=== PATIENT | female | born 1955 | race African-American/Black ===

== ENCOUNTER 2024-10-14 14:27 | Emergency (ER) | payer MEDICARE, SELFPAY ==
[2024-10-14 14:29] VITALS: BP 85/67; PULSE 90; RESP 16; TEMP 36.8; O2SAT 98; BMI 11.3
[2024-10-14 14:42] VITALS: BP 82/57; PULSE 88; O2SAT 100
[2024-10-14 14:47] VITALS: BP 103/75
--- NOTE | 2024-10-14 15:20 | CT_ITS ---
PROCEDURE: ABDOMEN/PELVIS WITHOUT CONTRAST REASON FOR EXAM: Nephrostomy tube removal. Patient in hospice care. History of bladder cancer with bone metastasis. COPD. TECHNIQUE: Contiguous axial scans of 2.5 millimeter slice thicknesses without intravenous or oral contrast. One or more dose reduction techniques were used (e.g., Automated exposure control, adjustment of the mA and/or kV according to patient size, use of iterative reconstruction technique). IV CONTRAST: Not given. COMPARISON: No relevant prior. FINDINGS: Lung bases: Centrilobular emphysematous changes. Parenchymal scarring, right lung base. Left lower lobe calcified granuloma, axial image number 6. Liver: Unremarkable. Gallbladder: Can not exclude a sludge ball. Spleen: Calcified spleen granulomas. Spleen is normal in size. Pancreas: Unremarkable. Adrenals: Unremarkable. Kidneys: Right kidney surgically absent. A left nephrostomy catheter. Left hydronephrosis, severe. Bladder: Markedly thickened urinary bladder wall. Reproductive Organs: Surgically absent uterus. Bowel: Large amount of fecal debris throughout the colon. No evidence of small- bowel obstruction. Appendix: Normal. Lymph nodes: No suspicious lymph node enlargement. Vasculature: Lower inferior vena caval and bilateral common iliac vein wall stent. Aortoiliac atherosclerotic calcific disease. Peritoneum / Retroperitoneum: No ascites. No free air. Bones: Extensive osteoblastic and osteolytic metastatic disease involving the lumbar spine, sacrum, and pelvis. Multiple lumbar vertebral body compression abnormalities. Osseous metastatic disease suspected in the bilateral hips. CT/Abdomen/Pelvis without Cont IMPRESSION: 1. Extensive osteoblastic and osteolytic metastatic disease. Multiple vertebr al body compression fractures most likely due to metastatic disease. 2. Status post right nephrectomy. 3. Severe left hydronephrosis and nephrostomy catheter. 4. Marked thickening of the urinary bladder wall. Can not exclude severe cyst itis. 5. Lower inferior vena caval and bilateral common iliac vein wall stent. 6. Suspicion of a gallbladder sludge ball. 7. Centrilobular emphysematous changes. 8. Other nonacute findings detailed above. Reading Location: [facility]
--- NOTE | 2024-10-14 15:43 | EDS_ITS ---
HPI History of Present Illness Chief Complaint: Wound Informant: patient and family Narrative Narrative: Patient is a 69-year-old female with reported history of metastatic renal cancer that is currently on hospice. She no longer has a right kidney and has a neph rostomy tube on the left secondary to ureteral obstruction. She just relocated to the area from [place] a week and a half ago. She is established with [facility]. Today she was moving and her nephrostomy tube pulled out. Daughter notes she has had decreased urine output since. They spoke with the hospice nurse who recommend she come to the ER. In addition patient has been having significant ongoing pain to her right leg and while the pain is actually better since last night she is having a hard time feeling her leg or moving it now. Denies any new trauma or injury. Currently has no acute pain or complaints at this time but they came in for evaluation of nephrostomy tube. Is not clear if patient has any oncologist or PCP in the area of her care is all through hospice. [facility] Medical History COPD (chronic obstructive pulmonary disease) Bone cancer Bladder cancer Nephrostomy tube displaced Allergy/AdvReac Type Severity Reaction Status Date / Time penicillin G Allergy Anaphylaxis Verified 10/14/24 14:35 Family History Father Cancer Social History household members: family housing: house current occupational status: retired Smoking Status: Current every day smoker tobacco type: cigarettes ROS ROS ED Constitutional Constitutional ED: Denies chills or fever(s) Gastrointestinal Gastrointestinal: Denies abdominal pain or vomiting Genitourinary Genitourinary ED: Reports other Details: Displacement of left-sided nephrostomy tube. Decreased drainage from it. Musculoskeletal Musculoskeletal: Reports arthralgias and myalgias Integumentary Denies rash Neurologic Neurologic: Reports weakness EXAM Physical Exam Const Vital Signs: 10/14/24 14:29 10/14/24 14:42 10/14/24 14:47 Temperature 98.3 F Temperature Source Oral Pulse Rate 90 88 Respiratory Rate 16 Blood Pressure 85/67 L 82/57 L 103/75 Blood Pressure Mean 73 65 84 Pulse Ox 98 100 Oxygen Delivery Method Room Air 10/14/24 16:42 10/14/24 18:00 10/14/24 18:29 Temperature 97.8 F Temperature Source Pulse Rate 88 88 84 Respiratory Rate 18 Blood Pressure 95/68 103/78 109/71 Blood Pressure Mean 77 86 83 Pulse Ox 100 Oxygen Delivery Method Positive cachectic General Appearance ED: cachectic and NAD Nutritional Appearance: cachectic HEENT Reports dry mucous membranes Negative for trauma Mouth ED: Yes dry mucous membranes Mouth: dry mucous membranes Chest Wall inspection of chest normal Resp normal respiratory effort and clear to auscultation bilaterally Cardio regular rate and regular rhythm GI GI Narrative: Mild tenderness in suprapubic region Back/Spine no CVA tenderness Back/Spine Narrative: Left-sided nephrostomy in place. It is at approximately 10 cm. There is some urine in the bag that is blood-tinged. Extremity Extremity Narrative: Patient is able to move her lower extremity mildly. She has monophasic popliteal and PT pulses. The foot is not cool and there is brisk capillary refill. Neuro Sensorium / Orientation: alert Motor Exam: general weakness Psych mental status grossly normal Skin no rashes or lesions noted and no wounds MDM MDM MDM Narrative Medical decision making narrative: Patient evaluated for concern of dislodged nephrostomy tube. Patient only has 1 kidney and has hydroureter/obstruction requiring the nephrostomy tube. She is on hospice care. Because of this we will not obtain lab work at this time. Family is agreeable with this. CT of the abdomen pelvis shows extensive osteoblastic, osteolytic metastatic disease, prior right nephrectomy and severe left hydronephrosis however nephrostomy catheter is present. I did speak with the radiologist who states it is positioned appropriately. While in the ER and is draining urine. Patient does require some pain medication in the ER. She given 1 dose of IM morphine. As she did she was ordered oral oxycodone but did not feel if she could swallow. She will follow-up with hospice medicine to see if they can switch her pain medications to liquid formulations. In addition patient was given abdominal binder to help her from potentially dislodging the nephrostomy tube further. While in the ER patient did also report that she had been having pain in her right lower leg but now it is numb. She does have monophasic pulses and does not have an acute ischemic limb. She is hospice I do not think any further intervention would be performed and family is understanding of this. I suspect she does have some significant peripheral vascular disease in that leg but is not critical at this time. Radiography Diagnostic Testing: Clinical Impression(s) from Imaging Studies Abdomen/Pelvis CT 10/14/24 15:20 IMPRESSION: 1. Extensive osteoblastic and osteolytic metastatic disease. Multiple vertebral body compression fractures most likely due to metastatic disease. 2. Status post right nephrectomy. 3. Severe left hydronephrosis and nephrostomy catheter. 4. Marked thickening of the urinary bladder wall. Can not exclude severe cystitis. 5. Lower inferior vena caval and bilateral common iliac vein wall stent. 6. Suspicion of a gallbladder sludge ball. 7. Centrilobular emphysematous changes. 8. Other nonacute findings detailed above. Reading Location: [facility] Discharge Plan Triage Chief Complaint: Wound ED Provider: Armida Díaz Dx/Rx/DC Orders Clinical Impression: History of insertion of nephrostomy tube Primary Care Provider: Care Physician,No Primary Referrals: Care Physician,No Primary [Primary Care Provider] - Activity Restrictions/Additional Instructions: Please continue to follow-up with hospice. The nephrostomy tube appears to be positioned appropriately today. I recommend noting the placement of your nephrostomy tube so if there is any change you know what distances out at this time. Please continue to reach out to hospice for assistance with medications and return if you have further concerns. Print Language: Danish Disposition Disposition: Home, Self Care Discharge Date/Time: 10/14/24 18:55
[2024-10-14 16:42] VITALS: BP 95/68; PULSE 88
[2024-10-14] MEDS: Morphine 4 MG/ML Syringe IM (16:53)
[2024-10-14 18:00] VITALS: BP 103/78; PULSE 88
[2024-10-14 18:29] VITALS: BP 109/71; PULSE 84; RESP 18; TEMP 36.6; O2SAT 100
== END 2024-10-14 18:55 | disposition home or self-care (01) ==
PROVIDERS: Emergency Provider Emergency Medicine; Visit Provider Emergency Medicine
DX: Z43.6 Encounter for attention to other artificial openings of urinary tract (principal); F17.210 Nicotine dependence, cigarettes, uncomplicated; Z90.5 Acquired absence of kidney; Z51.5 Encounter for palliative care
CPT/HCPCS: 74176; 96372; 99284

== ENCOUNTER 2024-10-21 08:58 | Emergency (ER) | payer MEDICARE, SELFPAY ==
[2024-10-21 09:00] VITALS: BP 89/63; PULSE 99; RESP 14; TEMP 36.4; O2SAT 98; BMI 14.3
--- NOTE | 2024-10-21 09:02 | ED.VIS.FEGU ---
HPI HPI - Female History of Present Illness Chief Complaint: Weber C/O PFSH PFSH Medical History COPD (chronic obstructive pulmonary disease) Bone cancer Bladder cancer Nephrostomy tube displaced Home Medications ?Medication ?Instructions ?Recorded ?Last Taken ?Type ciprofloxacin HCl 500 mg tablet 500 mg PO BID #14 TABLETS 10/21/24 Unknown Rx Allergy/AdvReac Type Severity Reaction Status Date / Time penicillin G Allergy Anaphylaxis Verified 10/14/24 14:35 Family History Father Cancer Social History household members: family housing: house current occupational status: retired Smoking Status: Current every day smoker tobacco type: cigarettes EXAM Physical Exam Const Vital Signs: 10/21/24 09:00 10/21/24 12:32 Temperature 97.5 F L 97.5 F L Temperature Source Temporal Pulse Rate 99 96 Respiratory Rate 14 12 Blood Pressure 89/63 L 92/75 Blood Pressure Mean 71 80 Pulse Ox 98 97 Oxygen Delivery Method Room Air MDM MDM MDM Narrative Medical decision making narrative: HISTORY OF PRESENT ILLNESS: 69-year-old female with past medical history consistent with metastatic renal cancer status post left nephrostomy tube. The patient is somnolent and arouses to minor stimulation but does not provide reliable history. History is provided by son and other family. Per them the patient had leakage around her left nephrostomy tube that started a couple days ago. They deny fever or vomiting. No she has been slightly more confused usual. They states she is in hospice. They note she is DNR-CC. They were concerned that there could be a problem with the patient's nephrostomy tube. They do not want excessive heroic measures done. REVIEW OF SYSTEMS: Unable to obtain reliable review of system secondary to PHYSICAL EXAM: Nursing triage notes reviewed, Vital signs reviewed Constitutional: please see mdm HENT: MMM Eyes: Pupils equal round and reactive to light, Extraocular muscles intact Neck: No stridor, no JVD, full neck ROM Lungs: Clear to auscultation, No wheezing or rales. No increased work of breathing, no conversational dyspnea, no accessory muscle use, no nasal flaring. No respiratory distress noted Heart: Regular rate and rhythm, No murmurs, No rubs and No gallops, 2+ distal pulses (radial, femoral, posterior tibial) in all extremities Abdomen: Soft, there is no tenderness, rigidity, rebound or guarding, no obvious peritoneal signs, no palpable pulsatile abdominal masses, no auscultated abdominal bruit : No CVAT, left nephrostomy tube noted in place intact. Sutures noted. Some slight white discharge noted. No fluctuance induration crepitus or bullae. There is urine in the nephrostomy bag. Extremities: No edema, right lower extremity was warm, good cap refill although had a difficult to palpate dorsalis pedis and posterior tibial pulse , however, I did see Doppler flow on ultrasound Neuro: No new focal neurological deficits, cranial nerves II through XII intact, 5/5 strength in all present extremities. Intact sensation to light touch in all present extremities, 2+ reflexes bilateral patella tendons. Skin: No rash or lesions noted MEDICAL DECISION MAKING: Chief Complaint: Concern for nephrostomy tube External records reviewed: Reviewed CT scan from 10/14/2004 which showed status post right nephrectomy, severe left hydronephrosis and nephrostomy catheter noted Factors affecting care: Bone cancer, bladder cancer, nephrostomy tube Social determinants of health: none History obtained from others: Family Consults: Urology (with Dr. Sebastian) MDM Narrative: Patient initially displayed soft blood pressures with blood pressure 89/60 however is consistent with prior studies with her baseline blood pressure being in the 80s to 90s. There is urine and catheter bag and nephrostomy tube. There is no obvious redness but there is some white discharge noted from catheter site. No palpable abscess fluctuance or induration. Patient appeared to have some pains I gave her IM morphine. Had a long shared decision-making discussion and goals of care discussion with family. They stated the patient is DNR-CC, currently was in hospice. They want to continue this CODE STATUS. They just want to make sure her nephrostomy tube is not dislodged given her recent visit. I offered him labs and images and they refuse labs been noted they would except imaging studies at this time. Obtained a CT scan of the abdomen pelvis contrast which showed an intact nephrostomy tube. I did consult urology spoke to Dr. Sebastian. He had no immediate recommendations and noted if the nephrostomy tube is draining urine and that there is no emergency. Did not recommend immediate therapy, surgery or additional testing. Noted the patient to be discharged. He also noted patient would follow-up with hospice for any further nephrostomy tube needs as they could replace nephrostomy tube as needed. Given white/yellow discharge noted at nephrostomy site I did send a wound culture. Will start the patient empirically on ciprofloxacin. The patient and/or family, caregivers express understanding. The patient and/or family, caregivers agrees with the plan. Shared decision making: I will have a discussion with the patient and or visitors regarding risk/benefits of further testing or admission. They will be made aware of of the risk/benefits inherent in this decision they will be given the opportunity to voice understanding. Total critical care time today provided was at least 0 minutes. This excludes separately billable procedures. Critical care time (if documented) is secondary to the patient having high probability of clinically significant/life threatening deterioration in the patient's condition which required my urgent intervention. Impression: 1. Nephrostomy tube evaluation 2. History of bladder cancer Dispo: Discharge home This note was generated with [employer] dictation software. It may contain incorrect words, spelling, and punctuation that were not noted in review of the chart prior to signing. Radiography Diagnostic Testing: Clinical Impression(s) from Imaging Studies Abdomen/Pelvis CT 10/21/24 09:44 IMPRESSION: Limited noncontrast examination without significant change from prior exams. Extensive abnormal intra-abdominal findings as described above essentially unchanged compared to prior exams. One or more dose reduction techniques were used (e.g., Automated exposure control, adjustment of the mA and/or kV according to patient size, use of iterative reconstruction technique). [facility] T[facility] Chief Complaint: Weber C/O ED Provider: Jerry Gonzáles Dx/Rx/DC Orders Clinical Impression: History of insertion of nephrostomy tube Prescriptions: New ciprofloxacin HCl 500 mg tablet 500 mg PO BID Qty: 14 0RF Primary Care Provider: Care Physician,No Primary Referrals: Ortiz Sebastian MD [Med Staff - Active Staff] - Activity Restrictions/Additional Instructions: Thank you for trusting us with your care today! Your nephrostomy tube appears to be intact and in place. I spoke to the urologist who had no immediate recommendations. Urologist stated that hospice should be able to troubleshoot your nephrostomy tube as needed. Please contact your hospice nurse/company for further nephrostomy tube care. Please return to the emergency department if your symptoms change or worsen. Please follow with your primary care physician for further outpatient evaluation and management. Print Language: Welsh Disposition Disposition: Home, Self Care Discharge Date/Time: 10/21/24 12:53
[2024-10-21] MEDS: Morphine 2 MG/ML Syringe IM (09:31)
--- NOTE | 2024-10-21 09:44 | CT_ITS ---
PROCEDURE: ABDOMEN/PELVIS WITHOUT CONT REASON FOR EXAM: Pain TECHNIQUE: Abdomen and pelvis CT with intravenous contrast. COMPARISON: 10/14/2024 FINDINGS: Lung bases: Emphysematous change Liver: Unremarkable. Gallbladder: Markedly distended as described previously.. Spleen: Granulomatous change. Pancreas: Unremarkable. Adrenals: Unremarkable. Kidneys: Status post right nephrectomy. Stable nephrostomy catheter in severe left hydronephrosis on the left. Bladder: Severe thickening unchanged. Reproductive Organs: Unremarkable. Bowel: Unremarkable. Appendix: Normal. Lymph nodes: No suspicious lymph node enlargement. Vasculature: Venous stents distally unchanged. Peritoneum / Retroperitoneum: No ascites. No free air. Bones: Multifocal metastatic disseminated disease with compression deformities unchanged. CT/Abdomen/Pelvis without Cont IMPRESSION: Limited noncontrast examination without significant change from prior exams. E xtensive abnormal intra-abdominal findings as described above essentially unchanged compared to prior exams. One or more dose reduction techniques were used (e.g., Automated exposure contr ol, adjustment of the mA and/or kV according to patient size, use of iterative reconstruction technique). Reading Location: [facility]
[2024-10-21 12:32] VITALS: BP 92/75; PULSE 96; RESP 12; TEMP 36.4; O2SAT 97
== END 2024-10-21 12:53 | disposition home or self-care (01) ==
PROVIDERS: Emergency Provider Emergency Medicine; Visit Provider Emergency Medicine
DX: Z43.6 Encounter for attention to other artificial openings of urinary tract (principal); J44.9 Chronic obstructive pulmonary disease, unspecified; F17.210 Nicotine dependence, cigarettes, uncomplicated; Z85.830 Personal history of malignant neoplasm of bone; Z85.51 Personal history of malignant neoplasm of bladder; Z90.5 Acquired absence of kidney
CPT/HCPCS: 74176; 87070; 87077; 87186; 87205; 96372; 99284